=== PATIENT | male | born 1930 | race Caucasian/White ===

== ENCOUNTER 2016-07-06 05:32 | Observation (INO) | payer MEDICARE ==
[2016-07-06] MEDS ORDERED: DIPHTHERIA AND TETANUS (ADULT) 0.5 ML SYR IM ONE (05:59)
--- NOTE | 2016-07-06 06:03 | EDPRACDOC ---
- General Information Information Source: Patient, Family - History of Present Illness Onset: 444 Medications/Treatment [facility] Treatment BLS IV No HPI: PT PRESENTS AFTER SYNCOPAL FALL AT HOME. STRUCK THE BACK OF HIS HEAD ON THE RIGHT, HIS RIGHT PROXIMAL FOREARM SUSTAINED A LACERATION/SKIN TEAR. REPORTS HE HAS BEEN PERSISTENTLY DIZZY THE LAST FEW DAYS AND HAS BEEN SLEEPING. Postsyncopal phase:: Reports: Rapid recovery History of: Reports: Hypoglycemia Associated Signs/Symptoms: Reports: Other (PE CURRENTLY ON COUMADIN.), Vertigo. Denies: Abdominal pain, Diarrhea, Nausea, Vomiting <Alverto Starks - Last Filed: 07/06/16 06:23> - History of Present Illness Medications/Treatment [facility] Treatment BLS IV No <Elizabeth Hernadez - Last Filed: 07/06/16 08:27> - General Information Chief Complaint: Fall Stated Complaint: FALL: HEAD LACERATION Time Seen by Provider: 07/06/16 05:54 Home Medications: Home Medications Allopurinol [Zyloprim] 300 mg PO QAM 06/16/13 Ferrous Sulfate [Feosol] 325 mg PO 1600 06/16/13 Latanoprost 1 drop OU HS 10/01/14 Acetaminophen Ex Str Tablet [TYLENOL EXTRA STRENGTH Tablet] 1,000 mg PO BID 11/14 Atorvastatin Calcium [Lipitor] 40 mg PO HS 07/06/16 Finasteride [Proscar] 5 mg PO HS 07/06/16 Furosemide [Lasix] 80 mg PO BID 07/06/16 Glimepiride [Amaryl] 1 mg PO QAM 07/06/16 Loratadine [Claritin] 10 mg PO DAILY PRN 07/06/16 Potassium Chloride [Klor-Con M20] 20 meq PO 1600 07/06/16 Prednisone [Deltasone, Orasone] 5 mg PO QAM 07/06/16 Vit C/E/Zn/Coppr/Lutein/Zeaxan [Ocuvite Lutein Capsule] 1 each PO 1600 07/06/16 Warfarin Sodium [Coumadin] 4 mg PO 1600 07/06/16 Allergies/Adverse Reactions: Allergies Allergy/AdvReac Type Severity Reaction Status Date / Time Penicillins Allergy Unknown HIVES Verified 07/06/16 05:40 - Treatment Prior to ED Arrival Reported Medications/Treatment [facility] Treatment BLS IV No <Alverto Starks - Last Filed: 07/06/16 06:23> - Treatment Prior to ED Arrival Reported Medications/Treatment [facility] Treatment BLS IV No <Elizabeth Hernadez - Last Filed: 07/06/16 08:27> ED Past Medical History - History Reviewed Yes Nurses notes reviewed and agree except as marked - Patient Medical History Cardiac History: Reports: Hypertension, Hypercholesterolemia Respiratory History: Reports: COPD, Pulmonary Embolism GI/ History: Reports: Kidney Stones Musculoskeletal History: Reports: Arthritis, Rheumatoid Arthritis Psychological History: Denies: Depression Systemic History: Reports: Anemia. Denies: Cancer Surgical History: Reports: Other (BACK, IVC FILTER) - Family Medical History Reports: Cancer (mother-uterine), Cardiac Disorders (brother-ME). Denies: Hypertension, Diabetes, Stroke - Social Medical History Smoking Status: Former smoker Lives With: Spouse Lives In: Home <Alverto Starks - Last Filed: 07/06/16 06:23> EDM Review of Systems - Review of Systems ROS Negative Except as Marked: Yes All systems reviewed and were negative except as marked Constitutional: negative: Fever Respiratory: negative: Shortness of Breath Cardiovascular: Syncope. negative: Chest Pain Gastrointestinal: negative: Nausea, Pain, Vomiting Neurological: Dizziness <Alverto Starks - Last Filed: 07/06/16 06:23> - Physical Exam Constitutional: Alert Oriented to: Time, Person, Place Last recorded Vital Signs: Last Vital Signs Temp 98.3 F 07/06/16 05:40 Pulse 96 07/06/16 05:40 Resp 18 07/06/16 05:40 BP 143/81 07/06/16 05:40 Pulse Ox 92 07/06/16 05:40 Oxygen Pulse Oxygen Saturation 92 O2 Device Oxygen Flow Rate Fraction of Inspired Oxygen ( FIO2) - HEENT Head: Laceration (SMALL RIGHT PARIETAL SCALP LACERATION.). negative: Deformity Nose: negative: Congestion, Discharge Neck: negative: Limited ROM - Respiratory/Cardiovascular Respiratory: Normal - CTA. negative: Accessory Muscle Use, Diminished, Tachypnea Cardiovascular: negative: Bradycardia, Tachycardia, Irregular - GI Auscultation: Normal Palpation: Normal Tenderness: Non tender - Musculoskeletal Extremities: Radial Pulse (PALPABLE), Other (RIGHT POSTERIOR FOREARM WITH LARGE SKIN TEAR/LACERATION. HEMOSTATIC.) - Integumentary Skin: Warm, Dry. negative: Rash - Neurologic Memory Impaired: Normal Motor Function: Normal Mood Description: Anxious, Appropriate Thought: Coherent Perception: Normal <Alverto Starks - Last Filed: 07/06/16 06:23> - Physical Exam Last recorded Vital Signs: Last Vital Signs Temp 98.3 F 07/06/16 05:40 Pulse 96 07/06/16 07:44 Resp 18 07/06/16 07:44 BP 104/62 07/06/16 07:44 Pulse Ox 95 07/06/16 07:44 Oxygen Pulse Oxygen Saturation 95 O2 Device Nasal Cannula Oxygen Flow Rate 2 Fraction of Inspired Oxygen ( FIO2) <Elizabeth Hernadez - Last Filed: 07/06/16 08:27> - Results 07/06/16 05:45 07/06/16 05:45 - EKG EKG #1 EKG Time: 06:01 -: Yes EKG interpreted by me Rate: bpm: 96 Rhythm: NSR Block: None ST: Nonsp <Alverto Starks - Last Filed: 07/06/16 06:23> - Results 07/06/16 05:45 07/06/16 05:45 WBC 7.2 xk/uL (3.8-10.8) 07/06/16 05:45 RBC 4.22 xM/uL (4.70-6.10) L 07/06/16 05:45 Hgb 13.3 g/dL (14.0-18.0) L 07/06/16 05:45 Hct 41.6 % (42-52) L 07/06/16 05:45 MCV 98 fL (80-94) H 07/06/16 05:45 MCH 31.6 pg (27-32) 07/06/16 05:45 MCHC 32.1 g/dl (33-36) L 07/06/16 05:45 RDW 16.3 % (11.5-14.5) H 07/06/16 05:45 Plt Count 177 xk/uL (130-400) 07/06/16 05:45 MPV 8.0 fL (7.4-10.4) 07/06/16 05:45 Neut % (Auto) 61.5 % (45-76) 07/06/16 05:45 Lymph % (Auto) 22.5 % (17-44) 07/06/16 05:45 Ashley % (Auto) 12.6 % (3-10) H 07/06/16 05:45 Eos % (Auto) 2.4 % (0-5) 07/06/16 05:45 Baso % (Auto) 1.0 % (0-2) 07/06/16 05:45 Absolute Neuts (auto) 4.39 xk/uL (1.7-8.2) 07/06/16 05:45 Absolute Lymphs (auto) 1.58 xk/uL (0.65-4.75) 07/06/16 05:45 PT 22.7 SEC (9.2-11.2) H 07/06/16 06:50 INR 2.2 07/06/16 06:50 APTT 28.9 SEC (22-35) 07/06/16 06:50 Puncture Site Left brachial 07/06/16 06:45 pH 7.510 pH UNITS (7.35-7.45) H 07/06/16 06:45 pCO2 39.0 mmHg (35-45) 07/06/16 06:45 pO2 66.0 mmHg (80-100) L 07/06/16 06:45 HCO3 31.1 MMOL/L (22-26) H 07/06/16 06:45 Total CO2 32.3 MMOL/L (23-27) H 07/06/16 06:45 Base Excess 7.5 (+/- 2) H 07/06/16 06:45 FiO2 % Room air 07/06/16 06:45 Specimen Drawn By Geovany 07/06/16 06:45 Sodium 142 mEq/L (137-146) 07/06/16 05:45 Potassium 4.0 mEq/L (3.5-5.1) 07/06/16 05:45 Chloride 101 mEq/L (98-107) 07/06/16 05:45 Carbon Dioxide 30 mMOL/L (22-33) 07/06/16 05:45 Anion Gap 15 mEq/L (8-16) 07/06/16 05:45 BUN 35 MG/DL (9-20) H 07/06/16 05:45 Creatinine 1.40 MG/DL (0.66-1.25) H 07/06/16 05:45 Estimated GFR (MDRD) 48 mL/min (>=60) L 07/06/16 05:45 Glucose 99 mg/dL (70-99) 07/06/16 05:45 Calculated Osmolality 281 MOs/Kg (270-290) 07/06/16 05:45 Calcium 9.3 MG/DL (8.4-10.2) 07/06/16 05:45 Total Bilirubin 0.7 MG/DL (0.2-1.3) 07/06/16 05:45 AST 37 IU/L (17-59) 07/06/16 05:45 ALT 37 IU/L (21-72) 07/06/16 05:45 Alkaline Phosphatase 68 IU/L (50-160) 07/06/16 05:45 Troponin I 0.10 ng/mL (<.04) 07/06/16 05:45 Total Protein 7.4 G/DL (6.3-8.2) 07/06/16 05:45 Albumin 4.0 G/DL (3.5-5.0) 07/06/16 05:45 Lab Results 07/06/16 07/06/16 07/06/16 06:50 06:45 05:45 WBC 7.2 RBC 4.22 L Hgb 13.3 L Hct 41.6 L MCV 98 H MCH 31.6 MCHC 32.1 L RDW 16.3 H Plt Count 177 MPV 8.0 Neut % (Auto) 61.5 Lymph % (Auto) 22.5 Ashley % (Auto) 12.6 H Eos % (Auto) 2.4 Baso % (Auto) 1.0 Absolute Neuts (auto) 4.39 Absolute Lymphs (auto) 1.58 PT 22.7 H INR 2.2 APTT 28.9 Puncture Site Left brachial pH 7.510 H pCO2 39.0 pO2 66.0 L HCO3 31.1 H Total CO2 32.3 H Base Excess 7.5 H FiO2 % Room air Specimen Drawn By Geovany Sodium Potassium Chloride Carbon Dioxide Anion Gap BUN Creatinine Estimated GFR (MDRD) Glucose Calculated Osmolality Calcium Total Bilirubin AST ALT Alkaline Phosphatase Troponin I Total Protein Albumin 07/06/16 05:45 WBC RBC Hgb Hct MCV MCH MCHC RDW Plt Count MPV Neut % (Auto) Lymph % (Auto) Ashley % (Auto) Eos % (Auto) Baso % (Auto) Absolute Neuts (auto) Absolute Lymphs (auto) PT INR APTT Puncture Site pH pCO2 pO2 HCO3 Total CO2 Base Excess FiO2 % Specimen Drawn By Sodium 142 Potassium 4.0 Chloride 101 Carbon Dioxide 30 Anion Gap 15 BUN 35 H Creatinine 1.40 H Estimated GFR (MDRD) 48 L Glucose 99 Calculated Osmolality 281 Calcium 9.3 Total Bilirubin 0.7 AST 37 ALT 37 Alkaline Phosphatase 68 Troponin I 0.10 Total Protein 7.4 Albumin 4.0 - Diagnostic Imaging Chest Image interpreted by: Radiologist No demonstrable pulmonary embolus. Fibrotic change in the bases with honeycombing appearance. Mild atelectasis in the bases. No lung edema or consolidation. No pneumothorax or parenchymal lung contusion. Stable benign right adrenal adenoma. Extensive atherosclerotic calcification in the aorta and proximal great vessels without aneurysm or dissection appreciable. Multiple foci of coronary artery calcification apparent. Head Image interpreted by: Radiologist . No evidence of traumatic intracranial injury or fracture. 2. Soft tissue laceration noted at the vertex. 3. Mild cortical volume loss and scattered small vessel ischemic microangiopathy. <Elizabeth Hernadez - Last Filed: 07/06/16 08:27> <Alverto Starks - Last Filed: 07/06/16 06:23> - Departure Yes I personally saw and evaluated the patient. Disposition: Admit IP To This Hospital Education/Counseling Given To: Patient, Family Member Education/Counseling Given Regarding: Diagnosis, Treatment Decision to Admit Time: 08:27 Decision to admit date: 07/06/16 Decision to admit: from ED - Physician Consulted Hospitalist Provider Called: Enoch Macias <Elizabeth Hernadez - Last Filed: 07/06/16 08:27> - Departure Condition: Fair Final Diagnosis: Syncope, VBI (vertebrobasilar insufficiency), Scalp laceration, Skin tear of right elbow without complication Instructions: RICE Therapy (ED) Referrals: Uli Pham MD [Primary Care Provider] - One Week Prescriptions: No Action Ferrous Sulfate [Feosol] 325 mg PO 1600 Allopurinol [Zyloprim] 300 mg PO QAM Latanoprost 1 drop OU HS Finasteride [Proscar] 5 mg PO HS Warfarin Sodium [Coumadin] 4 mg PO 1600 Atorvastatin Calcium [Lipitor] 40 mg PO HS Vit C/E/Zn/Coppr/Lutein/Zeaxan [Ocuvite Lutein Capsule] 1 each PO 1600 Potassium Chloride [Klor-Con M20] 20 meq PO 1600 Prednisone [Deltasone, Orasone] 5 mg PO QAM Glimepiride [Amaryl] 1 mg PO QAM Loratadine [Claritin] 10 mg PO DAILY PRN PRN Reason: ALLERGIES Furosemide [Lasix] 80 mg PO BID Acetaminophen Ex Str Tablet [TYLENOL EXTRA STRENGTH Tablet] 1,000 mg PO BID
[2016-07-06 06:19] LABS: AUTOMATED EOSINOPHIL 2.4 % (0-5); AUTOMATED LYMPH 22.5 % (17-44); AUTOMATED MONOCYTE 12.6 % (3-10); AUTOMATED NEUTROPHIL 61.5 % (45-76)
[2016-07-06 06:24] LABS: BLOOD UREA NITROGEN 35 MG/DL (9-20); CALCIUM 9.3 MG/DL (8.4-10.2); CALCULATED OSMOLALITY 281 MOs/Kg (270-290); CHLORIDE 101 mEq/L (98-107); GLUCOSE 99 mg/dL (70-99); SODIUM LEVEL 142 mEq/L (137-146); TOTAL PROTEIN 7.4 G/DL (6.3-8.2)
--- NOTE | 2016-07-06 06:32 | DIRPT ---
CLINICAL DATA: Dizziness and fall, acute onset. Cough. Initial encounter. EXAM: CHEST 2 VIEW COMPARISON: Chest radiograph performed 10/29/2015 FINDINGS: The lungs are well-aerated. Mild left basilar opacity likely reflects atelectasis, though pneumonia might have a similar appearance. No pleural effusion or pneumothorax is seen. The heart is mildly enlarged. No acute osseous abnormalities are seen. IMPRESSION: Mild left basilar airspace opacity likely reflects atelectasis, though pneumonia might have a similar appearance. Mild cardiomegaly noted. Electronically Signed By: Randy Mchugh M.D. On: 07/06/2016 06:29
--- NOTE | 2016-07-06 06:34 | DIRPT ---
CLINICAL DATA: Status post fall this morning, with skin tear at the proximal right forearm. Initial encounter. EXAM: RIGHT FOREARM - 2 VIEW COMPARISON: None. FINDINGS: There is no evidence of fracture or dislocation. The radius and ulna appear grossly intact. The elbow joint is unremarkable in appearance. Diffuse vascular calcifications are seen. The carpal rows are grossly unremarkable in appearance, though incompletely characterized. The known soft tissue laceration is not well characterized on radiograph. IMPRESSION: No evidence of fracture or dislocation. Diffuse vascular calcifications seen. Electronically Signed By: Randy Mchugh M.D. On: 07/06/2016 06:32
--- NOTE | 2016-07-06 06:37 | DIRPT ---
CLINICAL DATA: Status post fall due to dizziness. Hit back of head. Initial encounter. EXAM: CT HEAD WITHOUT CONTRAST TECHNIQUE: Contiguous axial images were obtained from the base of the skull through the vertex without intravenous contrast. COMPARISON: Paranasal sinus CT performed 10/16/2010 FINDINGS: There is no evidence of acute infarction, mass lesion, or intra- or extra-axial hemorrhage on CT. Prominence of the ventricles and sulci reflects mild cortical volume loss. Scattered periventricular and subcortical white matter change likely reflects small vessel ischemic microangiopathy. The brainstem and fourth ventricle are within normal limits. The basal ganglia are unremarkable in appearance. The cerebral hemispheres demonstrate grossly normal page-white differentiation. No mass effect or midline shift is seen. There is no evidence of fracture; visualized osseous structures are unremarkable in appearance. The visualized portions of the orbits are within normal limits. The paranasal sinuses and mastoid air cells are well-aerated. A soft tissue laceration is noted at the vertex. IMPRESSION: 1. No evidence of traumatic intracranial injury or fracture. 2. Soft tissue laceration noted at the vertex. 3. Mild cortical volume loss and scattered small vessel ischemic microangiopathy. Electronically Signed By: Randy Mchugh M.D. On: 07/06/2016 06:35
[2016-07-06 06:50] LABS: ALLEN'S TEST PASS; BEb 7.5 (+/- 2); TCO2 32.3 MMOL/L (23-27)
[2016-07-06 06:51] LABS: ABG Draw Site Left Brachial
[2016-07-06 07:14] LABS: PARTIAL THROMB. TIME 28.9 SEC (22-35); PT-INR 2.2
--- NOTE | 2016-07-06 07:46 | DIRPT ---
CLINICAL DATA: Syncope with fall shortness of breath EXAM: CT ANGIOGRAPHY CHEST WITH CONTRAST TECHNIQUE: Multidetector CT imaging of the chest was performed using the standard protocol during bolus administration of intravenous contrast. Multiplanar CT image reconstructions and MIPs were obtained to evaluate the vascular anatomy. CONTRAST: 80 mL Isovue 370 nonionic COMPARISON: Chest radiograph July 06, 2016; chest CT February 27, 2014 FINDINGS: There is no demonstrable pulmonary embolus. There is atherosclerotic change in aorta and visualized proximal great vessels. There is no thoracic aortic aneurysm or dissection. There are multiple coronary artery calcifications. The pericardium is not appreciably thickened. There is no demonstrable parenchymal lung contusion or pneumothorax. There is fibrotic change in the lung bases with honeycombing in the bases, primarily posteriorly and to a lesser extent laterally. There is mild bibasilar atelectasis. There is no robyn edema or consolidation. Thyroid appears unremarkable. There is no appreciable thoracic adenopathy. In the visualized upper abdomen, there is a right adrenal adenoma measuring 2.3 x 2.0 cm. There is atherosclerotic calcification in the aorta. No fracture or dislocation is evident. No blastic or lytic bone lesions are apparent. Review of the MIP images confirms the above findings. IMPRESSION: No demonstrable pulmonary embolus. Fibrotic change in the bases with honeycombing appearance. Mild atelectasis in the bases. No lung edema or consolidation. No pneumothorax or parenchymal lung contusion. Stable benign right adrenal adenoma. Extensive atherosclerotic calcification in the aorta and proximal great vessels without aneurysm or dissection appreciable. Multiple foci of coronary artery calcification apparent. Electronically Signed By: Rosendo Denny III, M.D. On: 07/06/2016 07:43
[2016-07-06] MEDS ORDERED: Pharmacy Review for Metformin - IV Contrast Given SCH (08:00)
[2016-07-06] MEDS ORDERED: NS 1,000 ML IV ONE (08:23)
[2016-07-06] MEDS ORDERED: MECLIZINE 25 MG TAB PO ONE (08:24)
[2016-07-06 08:36] LABS: LEUKOCYTES/URINE NEG (NEGATIVE); NITRITE/URINE NEG (NEGATIVE); RBC/URINE 0-2 (0-2); URINE OCCULT BLOOD NEG (NEG/TRACE); WBC/URINE 0-2 (0-2)
[2016-07-06] MEDS ORDERED: SENNA CONCENTRATE TAB PO PRN (09:07)
[2016-07-06] MEDS ORDERED: ACETAMINOPHEN 325 MG SUPP PR PRN (09:07)
[2016-07-06] MEDS ORDERED: TUSSIONEX 5 ML ORAL SYRINGE PO PRN (09:07)
[2016-07-06] MEDS ORDERED: BISACODYL 10 MG SUPP PR PRN (09:07)
[2016-07-06] MEDS ORDERED: PROMETHAZINE 25 MG/ML VIAL IV PRN (09:07)
[2016-07-06] MEDS ORDERED: ACETAMINOPHEN 325 MG/TAB TABLET PO PRN (09:07)
[2016-07-06] MEDS ORDERED: BENZONATATE 100 MG PERLES PO PRN (09:07)
[2016-07-06] MEDS ORDERED: ONDANSETRON HCL 4 MG/2 ML VIAL IV PRN (09:07)
[2016-07-06] MEDS ORDERED: GLUCAGON 1 MG VIAL SQ PRN (09:33)
[2016-07-06] MEDS ORDERED: DEXTROSE 25 GM/50 ML PFS IV PRN (09:33)
[2016-07-06] MEDS ORDERED: GLUCOSE (ORAL GEL) 15 GM TUBE PO PRN (09:33)
[2016-07-06] MEDS ORDERED: ALBUTEROL 0.083% 3 ML NEB NEB PRN (09:33)
[2016-07-06] MEDS ORDERED: ZOLPIDEM TARTRATE 5 MG TAB PO PRN (09:33)
[2016-07-06] MEDS ORDERED: Loratadine 10 MG TAB PO PRN (09:33)
--- NOTE | 2016-07-06 09:41 | HISTPHYS ---
- Chief Complaint Dizzy weak for the past 4 days unsteady - History of Present Illness Patient very pleasant 86-year-old white male lives at home with his who comes into the emergency room today complaining of unsteadiness when he stands up over the past 4 days. He was so unsteady this morning at 4:45 a.m. going to the bathroom he became extremely weak did not pass out but fell down fci to the bathroom on the tile. He mentions a history of peripheral edema and excess fluid for which she takes 80 mg of Lasix twice a day steadily over the past 2 years. He has been extremely weak over the past 4 days is not getting out of bed due to the weakness and his p.o. intake is diminished. His works so she can keep an eye on him had home during the day. He denies any fever chills diaphoresis although 2 weeks ago he received a prescription for Mucinex but denies any change in his cough. His adds that he has a history of asbestosis and previous multiple lung infections due to the methotrexate that he took for rheumatoid arthritis for 20 years. He only takes prednisone for it now. He has a history of hyperlipidemia, recurrent pulmonary emboli, edema which is not present now, BPH, glaucoma, diabetes, hypertension, COPD and rheumatoid arthritis. - Medical History Cardiac History: Reports: Hypertension, Hypercholesterolemia Respiratory History: Reports: COPD, Pulmonary Embolism (Recurrent) GI/ History: Reports: Kidney Stones Musculoskeletal History: Reports: Arthritis, Rheumatoid Arthritis Systemic History: Reports: Anemia. Denies: Cancer Neurological History: Reports: No Significant History Psychological History: Denies: Depression - Surgical History Reports: Other (BACK, IVC FILTER) - Medictions/Allergies Allergies Penicillins Allergy (Unknown, Verified 07/06/16 05:40) HIVES PIMPLES ON SOLES OF FEET Current Medication List: Reviewed Home Medications Allopurinol [Zyloprim] 300 mg PO QAM 06/16/13 Ferrous Sulfate [Feosol] 325 mg PO 1600 06/16/13 Latanoprost 1 drop OU HS 10/01/14 Acetaminophen Ex Str Tablet [TYLENOL EXTRA STRENGTH Tablet] 1,000 mg PO BID 11/14 Atorvastatin Calcium [Lipitor] 40 mg PO HS 07/06/16 Finasteride [Proscar] 5 mg PO HS 07/06/16 Furosemide [Lasix] 80 mg PO BID 07/06/16 Glimepiride [Amaryl] 1 mg PO QAM 07/06/16 Loratadine [Claritin] 10 mg PO DAILY PRN 07/06/16 Potassium Chloride [Klor-Con M20] 20 meq PO 1600 07/06/16 Prednisone [Deltasone, Orasone] 5 mg PO QAM 07/06/16 Vit C/E/Zn/Coppr/Lutein/Zeaxan [Ocuvite Lutein Capsule] 1 each PO 1600 07/06/16 Warfarin Sodium [Coumadin] 4 mg PO 1600 07/06/16 - Family History Reports: Cancer (mother-uterine), Cardiac Disorders (brother-ID). Denies: Hypertension, Diabetes, Stroke - Social History Travel Outside of [place] in the Last 3 Months?: No Lives: with Spouse Smoking Status: Former smoker (Quit smoking/chewing cigars 1971) Social History: Denies: Alcohol Use, Substance Use Disorder - Review of Systems Constitutional: No Symptoms Reported (No Fever, chills, wt loss/gain, diaphoresis but has had fatigue and weakness), Fatigue, Weakness. negative: Chills, Fever, Diaphoresis Eyes: Glaucoma Ears: No Symptoms Reported (No ear pain or discharge) Nose: No Symptoms Reported (No nasal discharge/congestion or bleeding) Mouth: No Symptoms Reported (No oropharyngeal lesions or erythema) Throat/Neck: No Symptoms Reported (No throat pain or swelling.No oropharyngeal lesions or erythema.) Respiratory: No Symptoms Reported (No cough, wheezing, or shortness of breath.) Cardiovascular: No Symptoms Reported (No chest pain or palpitations.) Gastrointestinal: No Symptoms Reported (No abdominal pain, nausea, vomiting, diarrhea, constipation, or bloody stool.) Genitourinary: No Symptoms Reported (No dysuria or hematuria.) Neurological: Gait Difficulty, Weakness Musculoskeletal:: Arthritis (Rheumatoid arthritis for years) Integumentary: No Symptoms Reported (no rashes or lesions) Allergic/Immunologic: No Symptoms Reported (no rashes or lesions) Hematologic: No Symptoms Reported (No chronic anemia, bleeding, or easy bruising.), Other (Lymphatics- no lymph node swelling or pain.) Endocrine: Diabetes Psychiatric: No Symptoms Reported (Fully oriented, with normal and appropriate affect.) - Physical Exam Vital Signs: Initial Vitals Temperature 98.3 F 07/06/16 05:40 Pulse Rate 96 02/06/17 05:40 Respiratory Rate 18 07/06/16 05:40 Blood Pressure 143/81 07/06/16 05:40 Pulse Oxygen Saturation 92 07/06/16 05:40 Constitutional: Alert (Awake, Fully oriented. Normal and appropriate affect.Well appearing. Well nourished.), No apparent distress Oriented to: Time, Person, Place - HEENT Head: Normal (normocephalic, atraumatic.), Other (No cervical lymphadenopathy. No supraclavicular lymphadenopathy. Neck: No palpable mass, supple , trachea midline.) Eye: Normal (pupils equal, reactive to light, and round; EOMI, Sclera white) Oropharynx: Normal (Pharynx: Moist without exudate,Gums-no swelling, No oropharyngeal lesions or erythema, Mucous membranes are dry.) ENT EAC: Normal (No oropharyngeal lesions or erythema. Mucous membranes are dry. ) TMJ: Normal Nose: No Symptoms Reported (septum midline, Nares patent, without discharge or bleeding.) Respiratory: Normal - CTA (Clear to auscultation bilaterally. No wheezing, rales , rhonchi. Chest wall movements are symmetric. No use of accessory muscles to breathe.) Cardiovascular: Normal ( Normal S1, S2. No murmurs, rubs, or gallops. PMI non- displaced. Carotids: no carotid bruits. No bradycardia or tachycardia. DP pulses 2+ bilaterally.), Irregular (Mildly irregular) - GI Auscultation: Normal (normal active sounds) Palpation: Normal (Soft,non distended,nontender. No hepatosplenomegaly.) Tenderness: Non tender (No rebound or guarding) Valencia's Sign: Negative - Musculoskeletal Back: Normal (Non-Tender) Extremities: Normal (Normal tone, DP pulses 2+ bilaterally, No cyanosis or edema bilaterally, FROM bilaterally.) Spine: non-tender, normal alignment, normal inspection, limited range of motion - Integumentary Skin: Normal (Clean, dry, and intact. No rashes. No lesions.) Lymphatics: Normal (No cervical lymphadenopathy. No supraclavicular lymphadenopathy.) - Neurologic Memory Impaired: Normal Motor Function: Normal (Motor 5/5 throughout.Normal tone, Pulses 2+ No cyanosis or edema, FROM) Cranial Nerve: Normal (CN II-XII intact sensation, strength 5/5) Cerebellar: Normal (Babinski: toes downgoing bilaterally. Intact Finger to nose. Sensory grossly intact to light touch. Intact rapid alternating movements bilaterally. No pronator drift.) Mood Description: Normal (Fully oriented. Normal and appropriate affect.) Perception: Normal (Normal and appropriate affect.) - Focused CV Perfusion Exam Vital Signs: Last Vital Signs Temp 98.3 F 07/06/16 05:40 Pulse 96 07/06/16 09:00 Resp 18 07/06/16 09:00 BP 108/92 07/06/16 09:00 Pulse Ox 93 07/06/16 09:00 - Lab Results 07/06/16 05:45 07/06/16 05:45 Laboratory Results - last 24 hr 07/06/16 07/06/16 07/06/16 05:45 05:45 05:57 WBC 7.2 RBC 4.22 L Hgb 13.3 L Hct 41.6 L MCV 98 H MCH 31.6 MCHC 32.1 L RDW 16.3 H Plt Count 177 MPV 8.0 Neut % (Auto) 61.5 Lymph % (Auto) 22.5 [place] % (Auto) 12.6 H Eos % (Auto) 2.4 Baso % (Auto) 1.0 Absolute Neuts (auto) 4.39 Absolute Lymphs (auto) 1.58 PT INR APTT Puncture Site pH pCO2 pO2 HCO3 Total CO2 Base Excess FiO2 % Specimen Drawn By Sodium 142 Potassium 4.0 Chloride 101 Carbon Dioxide 30 Anion Gap 15 BUN 35 H Creatinine 1.40 H Estimated GFR (MDRD) 48 L Glucose 99 Calculated Osmolality 281 Calcium 9.3 Total Bilirubin 0.7 AST 37 ALT 37 Alkaline Phosphatase 68 Troponin I 0.10 Total Protein 7.4 Albumin 4.0 Urine Color Yellow Urine Clarity Clear Urine pH 5.0 Ur Specific [place] 1.005 Urine Protein Neg Urine Glucose (UA) Neg Urine Ketones Neg Urine Occult Blood Neg Urine Nitrite Neg Urine Bilirubin Neg Urine Urobilinogen <2.0 Ur Leukocyte Esterase Neg Urine RBC 0-2 Urine WBC 0-2 Ur Epithelial Cells Occ Hyaline Casts 2-5 H Urine Mucus Occ 07/06/16 07/06/16 07/06/16 06:45 06:50 08:40 WBC RBC Hgb Hct MCV MCH MCHC RDW Plt Count MPV Neut % (Auto) Lymph % (Auto) [place] % (Auto) Eos % (Auto) Baso % (Auto) Absolute Neuts (auto) Absolute Lymphs (auto) PT 22.7 H INR 2.2 APTT 28.9 Puncture Site Left brachial pH 7.510 H pCO2 39.0 pO2 66.0 L HCO3 31.1 H Total CO2 32.3 H Base Excess 7.5 H FiO2 % Room air Specimen Drawn By Geovany Sodium Potassium Chloride Carbon Dioxide Anion Gap BUN Creatinine Estimated GFR (MDRD) Glucose Calculated Osmolality Calcium Total Bilirubin AST ALT Alkaline Phosphatase Troponin I 0.10 Total Protein Albumin Urine Color Urine Clarity Urine pH Ur Specific [place] Urine Protein Urine Glucose (UA) Urine Ketones Urine Occult Blood Urine Nitrite Urine Bilirubin Urine Urobilinogen Ur Leukocyte Esterase Urine RBC Urine WBC Ur Epithelial Cells Hyaline Casts Urine Mucus - Diagnostic Findings CT of the chest shows COPD and coronary artery calcifications and right adrenal adenoma slightly over [address] of the head shows atrophic cerebral cortex but no acute bleed and no previous stroke. - Assessment (1) Orthostatic dizziness R42 - DIZZINESS AND GIDDINESS Acute Present on Admission: Yes Likely related to his dehydrated state. IV fluid will be administered next 24 hours then likely to be discharged. (2) Dehydration E86.0 - DEHYDRATION Acute Present on Admission: Yes On dose Lasix for peripheral edema which she does not have and is quite azotemic. Will administer IV fluids and cut down on his Lasix at discharge. (3) Diabetes mellitus E11.9 - TYPE 2 DIABETES MELLITUS WITHOUT COMPLICATIONS Chronic Present on Admission: Yes Qualifiers: Diabetes mellitus type: type 2 Diabetes mellitus complication status: without complication Diabetes mellitus terminal system operator insulin use: without senior care use Qualified Code(s): E11.9 - Type 2 diabetes mellitus without complications Sliding scale insulin therapy and oral hypoglycemic as is taking at home. (4) Hypertension I10 - ESSENTIAL (PRIMARY) HYPERTENSION Acute Present on Admission: Yes Qualifiers: Hypertension type: essential hypertension Qualified Code(s): I10 - Essential (primary) hypertension Monitor blood pressure during hospitalization. Holding Lasix for now. Check orthostatic blood pressures. (5) Hyperuricemia Chronic Present on Admission: Yes Continue allopurinol. (6) COPD (chronic obstructive pulmonary disease) J44.9 - CHRONIC OBSTRUCTIVE PULMONARY DISEASE, UNSPECIFIED Chronic Present on Admission: Yes Qualifiers: COPD type: unspecified COPD Qualified Code(s): J44.9 - Chronic obstructive pulmonary disease, unspecified Continue previous medications including p.r.n. nebulizers. (7) Hyperlipidemia E78.5 - HYPERLIPIDEMIA, UNSPECIFIED Chronic Present on Admission: Yes Qualifiers: Hyperlipidemia type: mixed hyperlipidemia Qualified Code(s): E78.2 - Mixed hyperlipidemia Lipitor. (8) BPH (benign prostatic hyperplasia) N40.0 - BENIGN PROSTATIC HYPERPLASIA WITHOUT LOWER URINRY TRACT SYMP Chronic Present on Admission: Yes Qualifiers: Prostatic enlargement morphology: unspecified morphology Lower urinary tract symptom presence: symptoms absent Qualified Code(s): N40.0 - Benign prostatic hyperplasia without lower urinary tract symptoms Continue Proscar. - Plan Cc: Dr. Vero Veliz pulmonary attention Dr. Puente Case Care Discussed with: Patient, Nursing Staff, Resource Management Total Time: Time spent 58 minutes Critical Care: No Code: Other (220)
[2016-07-06] MEDS ORDERED: WARFARIN EDUCATION DOCUMENTATION ONE (10:00)
[2016-07-06] MEDS ORDERED: LATANOPROST 0.005% OPHTH SOLN 2.5 ML OU SCH (10:00)
[2016-07-06] MEDS ORDERED: Vaccine Screening Complete SCH (11:00)
[2016-07-06] MEDS: NS/KCl 20 mEq 1,000 ML IV SCH ×3 (13:01→20:02)
[2016-07-06] MEDS: Albuterol/Ipratropium Neb 3 ML NEB NEB SCH ×2 (13:33→19:30)
[2016-07-06] MEDS: This patient is receiving warfarin therapy SCH (16:00)
[2016-07-06] MEDS ORDERED: [UNRECOGNIZED DRUG - OTHER] PO SCH (16:00)
[2016-07-06] MEDS ORDERED: Non-Formulary Medication ITEM (Ferrous Sulfate [Feosol] 325 MG) PO SCH (16:00)
[2016-07-06] MEDS: REGULAR INSULIN 100 UNITS/ML - 3 ML VIAL SQ SCH (16:10)
[2016-07-06] MEDS: WARFARIN 4 MG TAB PO SCH (17:47)
[2016-07-06] MEDS: FERROUS SULFATE 324 MG TAB PO SCH (17:47)
[2016-07-06] MEDS: VITAMINS, MULTIPLE CAP PO SCH (17:47)
[2016-07-06] MEDS: FINASTERIDE 5 MG TAB PO SCH (20:02)
[2016-07-06] MEDS: ATORVASTATIN 40 MG TAB PO SCH (20:02)
[2016-07-06] MEDS: LATANOPROST 0.005% OPHTH SOLN 2.5 ML OU SCH (20:02)
[2016-07-06] MEDS: OXYCODONE HCL 5 MG TABLET PO PRN (20:08)
[2016-07-07] MEDS: Albuterol/Ipratropium Neb 3 ML NEB NEB SCH ×4 (01:44→19:48)
[2016-07-07] MEDS: NS/KCl 20 mEq 1,000 ML IV SCH ×4 (01:59→09:28)
[2016-07-07 03:57] VITALS: BMI 29.0
[2016-07-07 04:23] LABS: MPV 7.8 fL (7.4-10.4)
[2016-07-07 04:43] LABS: BLOOD UREA NITROGEN 23 MG/DL (9-20); CALCIUM 8.5 MG/DL (8.4-10.2); CALCULATED OSMOLALITY 273 MOs/Kg (270-290); CHLORIDE 106 mEq/L (98-107); GLUCOSE 96 mg/dL (70-99); SODIUM LEVEL 140 mEq/L (137-146)
[2016-07-07 04:44] LABS: PT-INR 2.3
[2016-07-07] MEDS: REGULAR INSULIN 100 UNITS/ML - 3 ML VIAL SQ SCH ×2 (05:48→16:21)
[2016-07-07] MEDS: GLIMEPIRIDE 1 MG TAB PO SCH (08:03)
[2016-07-07] MEDS: PREDNISONE 5 MG TAB PO SCH (08:03)
[2016-07-07] MEDS: OXYCODONE HCL 5 MG TABLET PO PRN ×2 (08:03→19:45)
[2016-07-07] MEDS ORDERED: FUROSEMIDE 40 MG/4 ML VIAL IV SCH (10:00)
--- NOTE | 2016-07-07 11:36 | DIRPT ---
CLINICAL DATA: Shortness of Breath EXAM: PORTABLE CHEST 1 VIEW COMPARISON: 07/06/2016 FINDINGS: Cardiac shadow remains enlarged. Aortic calcifications are again noted. The overall inspiratory effort is poor with crowding of the vascular markings. Some fibrotic changes are noted in the bases bilaterally stable from the prior exam. No new focal abnormality is seen. IMPRESSION: Stable bibasilar changes. No acute abnormality noted. Electronically Signed By: Augustine Jacobs M.D. On: 07/07/2016 11:34
--- NOTE | 2016-07-07 16:21 | GENMEDPROG ---
Chief Complaint: Renal function better but more congested and short of breath today. Rales on exam. Now appears volume overloaded Notes Reviewed: Yes: Events from last night noted and discussed with Clinical Staff Current Medication List: Reviewed Currently: Reports: Cough, ROSE, SOB. Denies: Nausea and Vomiting, Abdominal Pain DVT Prophylaxis: Yes - Physical Examination Vital Signs and I&O: Last Vital Signs Temp 97.8 F 07/07/16 16:10 Pulse 93 07/07/16 16:10 Resp 18 07/07/16 16:10 BP 115/66 07/07/16 16:10 Pulse Ox 97 07/07/16 16:10 Oxygen Pulse Oxygen Saturation 97 O2 Device Nasal Cannula Oxygen Flow Rate 2 Fraction of Inspired Oxygen ( FIO2) Intake & Output 07/04/16 07/05/16 07/06/16 07/07/16 23:59 23:59 23:59 23:59 Intake Total 2149 2266 Output Total 1400 525 Balance 749 1741 Patient's weight 88.904 kg 91.852 kg General: Alert, Oriented x3, Cooperative, Mild distress HEENT: Normal, PERRLA, EOMI, Anicteric Sclera Neck: Non-tender, Full range of motion, Normal Trachea alignment, Normal inspection. negative: JVD Lymphatics: Normal (No cervical lymphadenopathy. No supraclavicular lymphadenopathy.). negative: Adenopathy Respiratory: Normal - CTA (Clear to auscultation bilaterally. No wheezing, rales , rhonchi. Chest wall movements are symmetric. No use of accessory muscles to breathe.) Cardiovascular: Regular rate and rhythm, No Gallops,Rubs/Murmurs GI: Normal bowel sounds, Soft, Non tender, No hepatospenomegaly Extremities/Musculoskeletal: Normal pulses. negative: Tenderness, Swelling, Edema Skin: Warm,Dry and Intact, No rashes, No breakdown, No significant lesion Neurological: Normal speech, Strength at 5/5 X4 ext, Normal tone, Cranial nerves 3-12 NL Psych/Mental Status: Appropriate, Normal Affect, Cooperative Lab/DI/Studies Reviewed: Laboratory Results - last 24 hr 07/07/16 07/07/16 07/07/16 04:10 04:10 04:10 WBC 8.2 RBC 3.54 L Hgb 11.4 L D Hct 35.0 L MCV 99 H MCH 32.3 H MCHC 32.7 L RDW 16.3 H Plt Count 143 MPV 7.8 PT 23.7 H INR 2.3 Sodium 140 Potassium 4.4 Chloride 106 Carbon Dioxide 26 Anion Gap 12 BUN 23 H Creatinine 1.00 Estimated GFR (MDRD) > 60 Glucose 96 POC Capillary Glucose Calculated Osmolality 273 Calcium 8.5 07/07/16 07/07/16 11:31 16:14 WBC RBC Hgb Hct MCV MCH MCHC RDW Plt Count MPV PT INR Sodium Potassium Chloride Carbon Dioxide Anion Gap BUN Creatinine Estimated GFR (MDRD) Glucose POC Capillary Glucose 131 H 133 H Calculated Osmolality Calcium - Assessment (1) Dehydration Acute E86.0 - DEHYDRATION Comment/Plan: Now congested with bibasilar rales. Discontinue IV fluids and restart home Lasix. Monitor respiratory distress. (2) Hypertension Acute I10 - ESSENTIAL (PRIMARY) HYPERTENSION Qualifiers: Hypertension type: essential hypertension Qualified Code(s): I10 - Essential (primary) hypertension Comment/Plan: Continue medications. Restarting Lasix due to volume overload. (3) Orthostatic dizziness Acute R42 - DIZZINESS AND GIDDINESS Comment/Plan: DC IV fluids and monitor (4) Diabetes mellitus Chronic E11.9 - TYPE 2 DIABETES MELLITUS WITHOUT COMPLICATIONS Qualifiers: Diabetes mellitus type: type 2 Diabetes mellitus complication status: without complication Diabetes mellitus manager intermediate insulin use: without detention use Qualified Code(s): E11.9 - Type 2 diabetes mellitus without complications Comment/Plan: Sliding scale insulin therapy and oral hypoglycemic as is taking at home. (5) Hyperlipidemia Chronic E78.5 - HYPERLIPIDEMIA, UNSPECIFIED Qualifiers: Hyperlipidemia type: mixed hyperlipidemia Qualified Code(s): E78.2 - Mixed hyperlipidemia Comment/Plan: Lipitor. Case Care Discussed with: Patient, Nursing Staff, Resource Management, Respiratory Therapy, Enterprise Systems Engineer
[2016-07-07] MEDS: This patient is receiving warfarin therapy SCH (16:34)
[2016-07-07] MEDS: FUROSEMIDE 80 MG TAB PO SCH (16:34)
[2016-07-07] MEDS: FERROUS SULFATE 324 MG TAB PO SCH (16:34)
[2016-07-07] MEDS: VITAMINS, MULTIPLE CAP PO SCH (16:34)
[2016-07-07] MEDS: WARFARIN 4 MG TAB PO SCH (16:35)
[2016-07-07] MEDS: FINASTERIDE 5 MG TAB PO SCH (19:45)
[2016-07-07] MEDS: ATORVASTATIN 40 MG TAB PO SCH (19:45)
[2016-07-07] MEDS: LATANOPROST 0.005% OPHTH SOLN 2.5 ML OU SCH (19:46)
[2016-07-08] MEDS: Albuterol/Ipratropium Neb 3 ML NEB NEB SCH ×3 (01:30→13:47)
[2016-07-08 05:34] LABS: PT-INR 2.4
[2016-07-08 05:48] LABS: AUTOMATED BASOPHIL 0.4 % (0-2); AUTOMATED EOSINOPHIL 2.3 % (0-5); AUTOMATED LYMPH 9.7 % (17-44); AUTOMATED MONOCYTE 12.2 % (3-10); AUTOMATED NEUTROPHIL 75.4 % (45-76); MPV 8.3 fL (7.4-10.4)
[2016-07-08 05:51] LABS: BLOOD UREA NITROGEN 19 MG/DL (9-20); CALCIUM 8.3 MG/DL (8.4-10.2); CALCULATED OSMOLALITY 268 MOs/Kg (270-290); CHLORIDE 103 mEq/L (98-107); GLUCOSE 94 mg/dL (70-99); SODIUM LEVEL 138 mEq/L (137-146)
[2016-07-08] MEDS: REGULAR INSULIN 100 UNITS/ML - 3 ML VIAL SQ SCH (06:17)
[2016-07-08] MEDS: GLIMEPIRIDE 1 MG TAB PO SCH (08:49)
[2016-07-08] MEDS: FUROSEMIDE 80 MG TAB PO SCH (08:49)
[2016-07-08] MEDS: PREDNISONE 5 MG TAB PO SCH (08:49)
--- NOTE | 2016-07-08 12:15 | PCM.DCS92 ---
- Final/Secondary Discharge Diagnosis (1) Dehydration Acute E86.0 - DEHYDRATION Present on Admission: Yes Comment: Now congested with bibasilar rales. Discontinue IV fluids and restart home Lasix. Monitor respiratory distress. (2) Hypertension Acute I10 - ESSENTIAL (PRIMARY) HYPERTENSION Present on Admission: Yes essential hypertension I10 - Essential (primary) hypertension Comment: Stable to resume home medications (3) Orthostatic dizziness Acute R42 - DIZZINESS AND GIDDINESS Present on Admission: Yes Comment: Resolved (4) Diabetes mellitus Chronic E11.9 - TYPE 2 DIABETES MELLITUS WITHOUT COMPLICATIONS Present on Admission: Yes type 2 without complication without extermination supervisor use E11.9 - Type 2 diabetes mellitus without complications Comment: Sliding scale insulin therapy and oral hypoglycemic as is taking at home. (5) Hyperlipidemia Chronic E78.5 - HYPERLIPIDEMIA, UNSPECIFIED Present on Admission: Yes mixed hyperlipidemia E78.2 - Mixed hyperlipidemia Comment: Lipitor. Discharge Disposition: Home Discharge Condition: Improved Cognitive Discharge Status: Unimpaired Fuctional Discharge Status: Independent Physician Follow up/Referrals: Uli Pham MD [Primary Care Provider] - 07/15/16 2:00 pm Home Medications / New Prescriptions: Continue Ferrous Sulfate [Feosol] 325 mg PO 1600 Allopurinol [Zyloprim] 300 mg PO QAM Latanoprost 1 drop OU HS Finasteride [Proscar] 5 mg PO HS Warfarin Sodium [Coumadin] 4 mg PO 1600 Atorvastatin Calcium [Lipitor] 40 mg PO HS Vit C/E/Zn/Coppr/Lutein/Zeaxan [Ocuvite Lutein & Zeaxanthin Cp] 1 each PO 1600 Potassium Chloride [Klor-Con M20] 20 meq PO 1600 Prednisone [Deltasone, Orasone] 5 mg PO QAM Glimepiride [Amaryl] 1 mg PO QAM Loratadine [Claritin] 10 mg PO DAILY PRN PRN Reason: ALLERGIES Furosemide [Lasix] 80 mg PO BID Acetaminophen Ex Str Tablet [TYLENOL EXTRA STRENGTH Tablet] 1,000 mg PO BID Discharge Home Medication List Allopurinol [Zyloprim] 300 mg PO QAM 06/16/13 [History Confirmed 07/06/16 Last Taken 07/05/16] Ferrous Sulfate [Feosol] 325 mg PO 1600 06/16/13 [History Confirmed 07/06/16 Last Taken 07/05/16] Latanoprost 1 drop OU HS 10/01/14 [History Confirmed 07/06/16 Last Taken ] Acetaminophen Ex Str Tablet [TYLENOL EXTRA STRENGTH Tablet] 1,000 mg PO BID 11/14 [History Confirmed 07/06/16 Last Taken 07/05/16] Atorvastatin Calcium [Lipitor] 40 mg PO HS 07/06/16 [History Confirmed 07/06/16 Last Taken 07/05/16] Finasteride [Proscar] 5 mg PO HS 07/06/16 [History Confirmed 07/06/16 Last Taken 07/05/16] Furosemide [Lasix] 80 mg PO BID 07/06/16 [History Confirmed 07/06/16 Last Taken 07/05/16] Glimepiride [Amaryl] 1 mg PO QAM 07/06/16 [History Confirmed 07/06/16 Last Taken 07/05/16] Loratadine [Claritin] 10 mg PO DAILY PRN 07/06/16 [History Confirmed 07/06/16 Last Taken Unknown] Potassium Chloride [Klor-Con M20] 20 meq PO 1600 07/06/16 [History Confirmed 11/14 Last Taken 07/05/16] Prednisone [Deltasone, Orasone] 5 mg PO QAM 07/06/16 [History Confirmed Last Taken 07/05/16] Vit C/E/Zn/Coppr/Lutein/Zeaxan [Ocuvite Lutein & Zeaxanthin Cp] 1 each PO 1600 07/06/16 [History Confirmed 07/06/16 Last Taken 07/05/16] Warfarin Sodium [Coumadin] 4 mg PO 1600 07/06/16 [History Confirmed 07/06/16 Last Taken 07/05/16] O2 Device: Room Air Diet at Discharge: Heart Healthy Activity: As Tolerated - DC Summary Notes Hospital Course Note:: Discharge summary on patient named NALLELY ROSENBERG admitted to [facility] on 07/06/16 by Enoch Macias MD. Date of discharge is []. Mr. Rosenberg is a very pleasant 86-year-old white male with multiple chronic medical problems who presented to the emergency room with complaint of generalized weakness and unsteadiness for 4 days prior to hospitalization. He apparently attempted to get up on the morning of hospitalization was so weak in the bathroom that he nearly passed out. He did fall down half-way on to the bathroom tile. In the emergency room he was found to be dehydrated with an acute kidney injury. He was also mildly orthostatic. His creatinine was elevated at 1.40 from a baseline of 0.8. Given his symptoms he was admitted to the hospital for further evaluation and management. He was hydrated but unfortunately became more congested during the initial 24 hours. We discontinued IV fluids and restarted his home medications including diuretics. His renal function has steadily improved and his creatinine is now 0.9. His respiratory status has been stable. He has been up ambulating in the halls and feels well. He repeatedly states that he feels better and wishes discharge home. At this point he has reached maximal hospital benefit and is stable for discharge home. He is to follow up with primary physician in the next week and to call or return with any problems Total Time: 50 minutes - Physical Exam Vital Signs: Last Vital Signs Temp 97.8 F 07/08/16 07:53 Pulse 102 07/08/16 10:00 Resp 07/08/16 07:53 BP 129/69 07/08/16 07:53 Pulse Ox 96 07/08/16 09:06 Oxygen Pulse Oxygen Saturation 96 O2 Device Room Air Oxygen Flow Rate 1.5 Fraction of Inspired Oxygen ( FIO2) Constitutional: No apparent distress, Alert (Awake, Fully oriented. Normal and appropriate affect.Well appearing. Well nourished.), Well nourished, Well appearing Oriented to: Time, Person, Place - HEENT Head: Normal (normocephalic, atraumatic.), Other (No cervical lymphadenopathy. No supraclavicular lymphadenopathy. Neck: No palpable mass, supple , trachea midline.) Eye: Normal (pupils equal, reactive to light, and round; EOMI, Sclera white) Oropharynx: Normal (Pharynx: Moist without exudate,Gums-no swelling, No oropharyngeal lesions or erythema, Mucous membranes are dry.) ENT EAC: Normal (No oropharyngeal lesions or erythema. Mucous membranes are dry. ) TMJ: Normal Nose: No Symptoms Reported (septum midline, Nares patent, without discharge or bleeding.) - Respiratory/Cardiovascular Respiratory: Normal - CTA (Clear to auscultation bilaterally. No wheezing, rales , rhonchi. Chest wall movements are symmetric. No use of accessory muscles to breathe.) Cardiovascular: Normal - GI Auscultation: Normal (normal active sounds) Palpation: Normal (Soft,non distended,nontender. No hepatosplenomegaly.) Tenderness: Non tender (No rebound or guarding) Valencia's Sign: Negative - Musculoskeletal Back: Normal (Non-Tender) Extremities: Normal (Normal tone, DP pulses 2+ bilaterally, No cyanosis or edema bilaterally, FROM bilaterally.) - Integumentary Lymphatics: Normal (No cervical lymphadenopathy. No supraclavicular lymphadenopathy.). negative: Adenopathy - Neurologic Memory Impaired: Normal Cerebellar: Normal (Babinski: toes downgoing bilaterally. Intact Finger to nose. Sensory grossly intact to light touch. Intact rapid alternating movements bilaterally. No pronator drift.) Mood Description: Normal (Fully oriented. Normal and appropriate affect.) Perception: Normal (Normal and appropriate affect.)
[2016-07-08 12:35] VITALS: BP 119/58; TEMP 98.4
[2016-07-08 16:08] VITALS: PULSE 106
== END 2016-07-08 16:10 | disposition home or self-care (01) ==
LOC: ED 05:32 → PCU 09:35
PROVIDERS: ADMIT Internal Medicine; ATTEND Hospitalist
DX: E86.0 Dehydration (principal); N17.9 Acute kidney failure, unspecified; I10 Essential (primary) hypertension; R42 Dizziness and giddiness; E11.9 Type 2 diabetes mellitus without complications; E78.5 Hyperlipidemia, unspecified; E79.0 Hyperuricemia without signs of inflammatory arthritis and tophaceous disease; J44.9 Chronic obstructive pulmonary disease, unspecified; N40.0 Benign prostatic hyperplasia without lower urinary tract symptoms; M06.9 Rheumatoid arthritis, unspecified; D64.9 Anemia, unspecified; S01.01XA Laceration without foreign body of scalp, initial encounter; S51.811A Laceration without foreign body of right forearm, initial encounter; W19.XXXA Unspecified fall, initial encounter; Y92.002 Bathroom of unspecified non-institutional (private) residence as the place of occurrence of the external cause; Z86.711 Personal history of pulmonary embolism; Z79.01 Long term (current) use of anticoagulants; Z79.899 Other long term (current) drug therapy
CPT/HCPCS: 36415; 36600; 70450; 71010; 71020; 71275; 73090; 80048; 80053; 81001; 82803; 82962; 83735; 84132; 84443; 84484; 85025; 85027; 85610; 85730; 87040; 87086; 87641; 90471; 90714; 93005; 94640; 96360; 99284; A9270; A9698; G0237; G0378; J3490; J7040; J7620